=== PATIENT | male | born 2000 | race Caucasian/White ===

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

== ENCOUNTER → 2020-02-19 11:54 | Outpatient (CLI) | payer BC, SELFPAY ==
[2020-02-20 12:36] LABS: COVID19 Sendout Not Detected (Not Detected)
== END ==
PROVIDERS: PCP Pediatrics; Visit Provider Physician Assistant
DX: R06.02 Shortness of breath (principal)
CPT/HCPCS: 87635

== ENCOUNTER → 2020-05-23 17:15 | Outpatient (CLI) | payer BC, SELFPAY | PROVIDERS: PCP Pediatrics; Visit Provider Physician Assistant | DX: Z11.3 Encounter for screening for infections with a predominantly sexual mode of transmission (principal) | CPT/HCPCS: 87491; 87591 ==

== ENCOUNTER → 2020-05-24 12:56 | Outpatient (CLI) | payer BC, SELFPAY ==
[2020-05-24 15:27] LABS: HIV 1 & 2 Ab/Ag 4th Gen Combo NEGATIVE (NEGATIVE)
[2020-05-25 04:33] LABS: HSV Type 1 AB, IgG <0.91 index (0.00-0.90)
[2020-05-25 04:36] LABS: RPR Screen Non Reactive (Non Reactive)
[2020-05-25 06:36] LABS: HBsAg Screen Negative (Negative); Hepatitis A Antibody IgM Negative (Negative); Hepatitis B Core Antibody IgM Negative (Negative); Hepatitis C Antibody 0.1 s/co ratio (0.0-0.9)
[2020-05-25 16:37] LABS: HSV I/II IgM 1.53 Ratio (0.00-0.90)
== END ==
PROVIDERS: PCP Pediatrics; Referring Provider Physician Assistant; Visit Provider Physician Assistant
DX: Z11.3 Encounter for screening for infections with a predominantly sexual mode of transmission (principal)
CPT/HCPCS: 36415; 80074; 86592; 86694; 86695; 87389